=== PATIENT | female | born 1995 | race Caucasian/White ===

== ENCOUNTER 2017-06-25 16:53 | Inpatient (IN) ==
[2017-06-25] MEDS ORDERED: MAG-AL + SIM ORAL LIQUID 30ml PO PRN (17:07)
[2017-06-25] MEDS ORDERED: METHYLERGONOVINE 0.2 MG/ML INJECTION IM PRN (17:07)
[2017-06-25] MEDS ORDERED: CALCIUM CARBONATE Chewable 500mg TABLET PO PRN (17:07)
[2017-06-25] MEDS ORDERED: ACETAMINOPHEN 500 MG TABLET PO PRN (17:07)
[2017-06-25] MEDS ORDERED: LR 1,000 ML IV PRN (17:07)
[2017-06-25] MEDS ORDERED: CARBOPROST 250 MCG/ML INJECTION IM PRN (17:07)
[2017-06-25] MEDS ORDERED: LIDOCAINE 1% (10mg/ml) 2mL INJ PF SDV ID PRN (17:07)
[2017-06-25] MEDS ORDERED: D5LR 1,000 ML IV SCH (17:30)
[2017-06-25 17:40] VITALS: BMI 35.6
--- NOTE | 2017-06-25 20:24 | Anesthesia Preoperative Report ---
Anesthesia Epidural/Spinal Rec - Date and Time Date: 06/25/17 Preoperative Diagnosis: Active labor Procedure: Labor Epidural Plan: Epidural - Vital Signs Vital Signs: Temperature 98.8 F 06/25/17 17:25 Pulse Rate 90 06/25/17 17:25 Respiratory Rate 20 06/25/17 17:25 Blood Pressure 124/76 06/25/17 17:25 Pulse Oximetry 99 06/25/17 17:25 /Para: P:1 - Medictaions & Allergies Inpatient Medications: Current Medications Acetaminophen (Tylenol) 500 - 1,000 mg PO Q4H PRN PRN Reason: Pain Al Hydroxide/Mg Hydroxide (Maalox Plus) 30 ml PO Q3H PRN PRN Reason: Indigestion Calcium Carbonate (Tums) 500 - 1,000 mg PO Q2H PRN PRN Reason: Indigestion Carboprost Tromethamine (Hemabate) 250 mcg IM O PRN PRN Reason: .Downtime Lactated Ringer's (Lactated Ringers) 1,000 mls @ 999 mls/hr IV .Q1H1M PRN Last Admin: 06/25/17 17:41 Dose: 999 mls/hr Dextrose/Lactated Ringer's (Dextrose 5%-Lactated Ringers) 1,000 mls @ 125 mls/ hr IV .Q8H BRUCE Last Admin: 06/25/17 17:42 Dose: 125 mls/hr Lidocaine HCl (Xylocaine-Mpf 1% Vial) 0.2 mg ID O PRN PRN Reason: IV Start Methylergonovine Maleate (Methergine) 0.2 mg IM O PRN Misoprostol (Cytotec) 800 mcg SC ONCE PRN Allergies/Adverse Reactions: Allergies Allergy/AdvReac Type Severity Reaction Status Date / Time No Known Allergies Allergy Verified 09/14/16 16:56 - Home Medications Home Medications: Home Medications Medication Instructions Recorded Confirmed Type Acetaminophen [Tylenol] 1 - 2 tab PO QID PRN #60 tab 05/01/15 History Vitamins 06/10/17 History - Medical History Other History: Reports: Now - Surgical History Reproductive Surgery/Treatment: DENIES: Section Anesthesia Reactions: None Hx Family Anesthesia Reaction: No History of Motion Sickness: No - Social History Smoking Status: Never smoker Second Hand Exposure: No Substance Use Type: does not use Alcohol Intake: never Hx Chewing Tobacco Use: No - Pertinent Findings Lab Data: CBC and BMP 06/25/17 17:31 EKG Rhythm: Normal Sinus Rhythm - Physical Exam Respiratory Exam: lungs clear Cardiovascular Exam: regular rate and rhythm - Airway Assessment Mallampati Score: II TMD: 3 Fingerbreadths Neck Extension: fair Overall Assessment: no airway concerns - ASA ASA Score: 2 - Discussion Discussion: Discussed risks/options/alternatives of anesthesia and questions answered. Patient consents. Nursing pain assessment noted. Anesthesia Discussion: spouse Attestation Statement: Prior to the delivery of any anesthetic medication, I examined the patient, developed the plan, obtained the patient's consent and discussed the risk and benefits of the procedure with the patient/guardian.
[2017-06-25] MEDS ORDERED: OXYTOCIN DRIP 30 UNIT/500 ML ML IV PRN (21:44)
[2017-06-25] MEDS ORDERED: D5LR 1,000 ML IV PRN (21:44)
[2017-06-25] MEDS ORDERED: NALOXONE 0.4 MG/ML INJECTION IVP PRN (22:45)
[2017-06-25] MEDS ORDERED: DiphenhydrAMINE 50 MG/ML INJECTION IVP PRN (22:45)
[2017-06-25] MEDS ORDERED: ROPIVACAINE 1% 10MG/ML INJ 200 MG, SUFentanil 50 MCG in NS 100 ML EPI PRN (22:45)
[2017-06-25] MEDS ORDERED: ONDANSETRON 4 MG/2 ML INJECTION IVP PRN (22:45)
[2017-06-26] MEDS ORDERED: HYDROCODONE/APAP 5mg/325mg TABLET PO PRN (02:29)
[2017-06-26] MEDS ORDERED: DiphenhydrAMINE 25 MG CAPSULE PO PRN (02:29)
[2017-06-26] MEDS ORDERED: HYDROCORTISONE 2.5% CREAM 30gm RECTALLY PRN (02:29)
[2017-06-26] MEDS ORDERED: MAG-AL + SIM ORAL LIQUID 30ml PO PRN (02:29)
[2017-06-26] MEDS ORDERED: CALCIUM CARBONATE Chewable 500mg TABLET PO PRN (02:29)
[2017-06-26] MEDS: IBUPROFEN 800 MG TABLET PO PRN ×3 (03:30→21:49)
[2017-06-26 06:19] VITALS: O2SAT 98
[2017-06-26] MEDS: PRENATAL VITAMIN TABLET PO SCH (12:29)
--- NOTE | 2017-06-26 13:48 | OB/GYN Progress Note ---
OB-PP Progress Note - General PPD0 Maternal Group B Strep: Negative Maternal blood type: O- Maternal Rubella Status: Not Immune - Subjective Date: 06/26/17 Lochia: Minimal Pain: controlled Voiding: voiding Nausea or Vomiting Present: No - Objective Vital Signs: Last Vital Signs Temp 98.2 F 06/26/17 09:50 Pulse 80 06/26/17 09:50 Resp 16 06/26/17 09:50 BP 103/69 06/26/17 09:50 Pulse Ox 98 06/26/17 09:50 Urine Output: good General: alert and oriented Abdomen: fundus firm, non-tender Extremities: non-tender Laboratory: Laboratory Results - last 24 hr 06/25/17 06/26/17 17:31 02:29 WBC 10.9 RBC 4.37 Hgb 10.8 L Hct 32.7 L MCV 74.8 L MCH 24.7 L MCHC 33.0 RDW Std Deviation 39.8 Plt Count 215 MPV 9.8 RhIG Candidate? Not a candidate - Assessment Assessment: JUANITA LORENZ - Plan Plan: routine care Expected date of discharge: 06/27/17
[2017-06-26] MEDS: DOCUSATE CALCIUM 240 MG CAPSULE PO SCH (14:08)
[2017-06-26] MEDS: ACETAMINOPHEN 500 MG TABLET PO PRN (18:08)
[2017-06-26 21:48] VITALS: RESP 16
[2017-06-27] MEDS: ACETAMINOPHEN 500 MG TABLET PO PRN (02:11)
--- NOTE | 2017-06-27 07:23 | Labor and Delivery Note ---
DATE OF DELIVERY 06/26/2017 DELIVERY NOTE She was admitted on 06/25/2017 and today is 06/26/2017. Ms. Alonso progressed well in first stage of labor. She began to push with excellent effort at the complete and +2 position. She pushed for a total of about three contractions delivering the head in the OA presentation. Baby was bulb suctioned on the perineum. There was no nuchal cord. With a further push, she delivered in total. After about 2-1/2 minutes the cord was doubly clamped. It was cut by the baby's father, Hany. This is a liveborn female with Apgars of 8/9/9. She weighed 8 pounds 5.7 ounces. After a few moments the placenta delivered spontaneously, intact. It had a normal configuration and a normal-appearing three-vessel cord. There was a spontaneous second-degree midline laceration that was repaired in the usual fashion with 2-0 Vicryl after infiltration with 1 % lidocaine. Total blood loss was approximately 300 ml. At the time of this dictation mother and baby are doing well. RONY
--- NOTE | 2017-06-27 08:05 | OB/GYN Progress Note ---
OB-PP Progress Note - General PPD1 Maternal Group B Strep: Negative Maternal blood type: O- Maternal Rubella Status: Not Immune - Subjective Date: 06/27/17 Lochia: Moderate Pain: controlled Voiding: voiding Nausea or Vomiting Present: No - Objective Vital Signs: Last Vital Signs Temp 97.6 F 06/26/17 21:47 Pulse 64 06/26/17 21:47 Resp 16 06/26/17 21:47 BP 117/68 06/26/17 21:47 Pulse Ox 98 06/26/17 09:50 Urine Output: good General: alert and oriented Abdomen: fundus firm Extremities: non-tender - Assessment Assessment: - Plan Plan: discharge home
[2017-06-27] MEDS: IBUPROFEN 800 MG TABLET PO PRN (08:20)
[2017-06-27] MEDS: DOCUSATE CALCIUM 240 MG CAPSULE PO SCH (08:20)
[2017-06-27] MEDS: PRENATAL VITAMIN TABLET PO SCH (08:28)
[2017-06-27 08:37] VITALS: BP 111/57; PULSE 75; TEMP 97.7
--- NOTE | 2017-06-27 08:39 | Anesthesia Postoperative Note ---
- Date and Time Date: 06/27/17 Time: 08:37 - Status Patient Participated in Evaluation: Patient Participated in Person Vital Signs: Temperature 97.7 F 06/27/17 05:43 Pulse Rate 75 06/27/17 05:43 Respiratory Rate 16 06/27/17 05:43 Blood Pressure 111/57 06/27/17 05:43 Pulse Oximetry 98 06/27/17 05:43 Respiratory Function: Airway Patent, Regular Respirations Cardiovascular Function: Regular Pulse Mental Status: Alert and Oriented Pain Intensity: 0 Hydration: Taking PO Fluids Complications During Recover: None Apparent Post Anesthesia Care Notes: ambulating without problem - Follow-Up Instructions Instructions: Per Surgeon
[2017-06-27] MEDS ORDERED: MEASLES-MUMPS-RUBELLA VACCINE 0.5ml INJECTION SUB-Q ONE (10:05)
== END 2017-06-27 11:00 | disposition home or self-care (01) | DRG 775 ==
LOC: OBOBS 16:53 → MC 16:56
PROVIDERS: ADMIT Obstetrics & Gynecology; ATTEND Obstetrics & Gynecology